=== PATIENT | female | born 1995 | race Caucasian/White ===

== ENCOUNTER 2020-07-13 20:23 | Emergency (ER) | payer BC ==
[~2020-07-13] VITALS: Ht 175.3 cm; Wt 102.5 kg
[2020-07-13] MEDS ORDERED: PANTOPRAZOLE 40 MG 10ML VIAL IV STA (20:30)
[2020-07-13] MEDS ORDERED: FAMOTIDINE 20 MG TAB ONE (20:39)
[2020-07-13] MEDS ORDERED: FAMOTIDINE 20 MG TAB PO ONE (20:45)
[2020-07-13] MEDS ORDERED: SODIUM CHLORIDE 0.9% 1000ML 1,000 ML IV STA (20:50)
[2020-07-13 21:03] LABS: BASOPHILS % 0.1 % (0.0-1.0); HEMATOCRIT 45.1 % (34.2-44.1); HEMOGLOBIN 15.1 g/dL (12.0-16.0); LYMPHOCYTES # (AUTO) 0.6 (1.0-3.2); LYMPHOCYTES % 8.1 % (18.0-39.1); MEAN CORPUSCULAR HEMOGLOBIN 30.6 pg (28-32); MEAN CORPUSCULAR HGB CONC 33.5 g/dL (31-35); MEAN CORPUSCULAR VOLUME 91.3 fL (81-99); MONOCYTES # (AUTO) 0.4 (0.2-0.8); MONOCYTES % 5.6 % (4.4-11.3); NEUTROPHILS # (AUTO) 5.9 (2.1-6.9); NEUTROPHILS % 85.9 % (38.7-80.0); PLATELET COUNT 253 x10e3/uL (140-360); RED BLOOD COUNT 4.94 x10e6/uL (3.6-5.1); RED CELL DISTRIBUTION WIDTH 11.9 % (11.7-14.4)
[2020-07-13] MEDS ORDERED: ONDANSETRON HCL INJ 2MG/ML 2ML 2 MG/ML VIAL ONE (21:05)
[2020-07-13] MEDS ORDERED: ONDANSETRON HCL INJ 2MG/ML 2ML 2 MG/ML VIAL IV STA (21:11)
[2020-07-13 21:27] LABS: ALANINE AMINOTRANSFERASE 25 IU/L (0-55); ALBUMIN 4.1 g/dL (3.5-5.0); ALBUMIN/GLOBULIN RATIO 1.2 (0.8-2.0); ALKALINE PHOSPHATASE 60 IU/L (40-150); BLOOD UREA NITROGEN 11 mg/dL (7-26); BUN/CREATININE RATIO 14 (6-25); CALCIUM 8.7 mg/dL (8.4-10.2); CARBON DIOXIDE 24 mmol/L (22-29); CHLORIDE 100 mmol/L (98-107); CREATININE, SERUM 0.81 mg/dL (0.57-1.11); EST GLOMERULAR FILTRATION RATE > 60 ML/MIN (60-); GLUCOSE 105 mg/dL (74-118); LIPASE 9 U/L (8-78); SODIUM 137 mmol/L (136-145)
[2020-07-13 21:33] LABS: HCG,QUANTITATIVE < 1.20 mIU/mL (0-10)
[2020-07-13] MEDS ORDERED: IOPAMIDOL 370 MG/ML 200 ML INFUS..BTL INJ ONE (21:49)
[2020-07-13] MEDS ORDERED: SODIUM CHLORIDE 0.9% 50ML 50 ML ONE (21:49)
[2020-07-13 22:22] LABS: CLARITY,URINE CLEAR (CLEAR); COLOR,URINE YELLOW (YELLOW); KETONES,URINE NEGATIVE (NEGATIVE); LEUKOCYTE ESTERASE ,URINE NEGATIVE (NEGATIVE); NITRITE,URINE NEGATIVE (NEGATIVE); PROTEIN,URINE DIPSTICK NEGATIVE (NEGATIVE); URINE UROBILINOGEN 0.2 mg/dL (0.2 - 1)
[2020-07-13] MEDS ORDERED: ONDANSETRON ODT4 MG PO (22:27)
[2020-07-13] MEDS ORDERED: CIPRO500 MG PO (22:27)
[2020-07-13] MEDS ORDERED: FLAGYL500 MG PO (22:27)
[2020-07-13] MEDS ORDERED: TYLENOL # 31 EA PO (22:27)
[2020-07-13 22:28] LABS: BACTERIA,URINE RARE /HPF; EPITHELIAL CELLS,URINE FEW /LPF; RBC,URINE 0-5 /HPF (0-5); WBC,URINE (MAN) 0-5 /HPF (0-5)
== END 2020-07-13 23:30 | disposition home or self-care (01) ==
LOC: ER 21:08
DX: R10.13 Epigastric pain (principal); R11.2 Nausea with vomiting, unspecified; N39.0 Urinary tract infection, site not specified
CPT/HCPCS: 36415; 74177; 80053; 81001; 83690; 84702; 85025; 99284; J2405; J7030; Q9967

== ENCOUNTER 2020-09-12 09:00 | Emergency (ER) | payer SELFPAY ==
[~2020-09-12] VITALS: Ht 175.3 cm; Wt 102.5 kg
[~2020-09-12 09:00] MED LIST: CIPRO500 MG PO; FLAGYL500 MG PO; ONDANSETRON ODT4 MG PO; TYLENOL # 31 EA PO
[2020-09-12] MEDS ORDERED: IBUPROFEN600 MG PO (10:10)
[2020-09-12] MEDS ORDERED: TESSALON PERLE100 MG PO (10:10)
== END 2020-09-12 10:35 | disposition home or self-care (01) ==
LOC: ER 09:30
DX: R05 Cough (principal); U07.1 COVID-19
CPT/HCPCS: 71045; 83518; 87070; 99283; U0002